=== PATIENT | male | born 1990 | race Caucasian/White ===

== ENCOUNTER 2016-11-28 20:19 | Emergency (ER) | payer OTHER ==
[~2016-11-28] VITALS: Ht 182.9 cm; Wt 109.1 kg
[2016-11-28 20:23] VITALS: BP 144/91
== END 2016-11-28 22:47 | disposition home or self-care (01) ==
LOC: EME 20:19
DX: S93.402A Sprain of unspecified ligament of left ankle, initial encounter (principal); X58.XXXA Exposure to other specified factors, initial encounter; Y99.0 Civilian activity done for income or pay; Z79.84 Long term (current) use of oral hypoglycemic drugs; F17.200 Nicotine dependence, unspecified, uncomplicated
CPT/HCPCS: 73610; 99281; 99284

== ENCOUNTER 2017-08-24 02:53 | Emergency (ER) | payer OTHER, BC ==
[~2017-08-24] VITALS: Ht 182.9 cm; Wt 108.8 kg
[2017-08-24 03:48] VITALS: BP 124/82
== END 2017-08-24 03:49 | disposition home or self-care (01) ==
LOC: EME 02:53
DX: R04.0 Epistaxis (principal); F10.99 Alcohol use, unspecified with unspecified alcohol-induced disorder
CPT/HCPCS: 99281; 99284